=== PATIENT | female | born 1980 | race Caucasian/White ===

== ENCOUNTER 2022-04-15 15:52 | Inpatient (IN) | payer BC ==
[~2022-04-15] VITALS: Ht 167.6 cm; Wt 149.0 kg
[2022-04-15] MEDS ORDERED: HYDROCODON-ACE1 EAC8 PO (19:46)
[2022-04-15] MEDS ORDERED: DICLOFENAC SODI75 MG PO (19:47)
[2022-04-15] MEDS ORDERED: HYDROXYCHLOROQ200 MG PO (19:47)
[2022-04-15] MEDS ORDERED: METHOTREXA25 MG/1 M7 INJ (19:47)
[2022-04-15] MEDS ORDERED: FOLIC ACID1 MG PO (19:47)
[2022-04-15] MEDS ORDERED: TOLTERODINE TART2 MG PO (19:48)
[2022-04-15] MEDS ORDERED: FUROSEMIDE20 MG PO (19:48)
[2022-04-15] MEDS ORDERED: PREDNISONE5 MG PO (19:48)
[2022-04-15] MEDS ORDERED: QUETIAPINE FUM100 MG PO (19:48)
[2022-04-15] MEDS ORDERED: VALACYCLOVIR1000 MG PO (19:49)
[2022-04-15] MEDS ORDERED: FLUCONAZOLE150 MG PO (19:49)
[2022-04-15] MEDS ORDERED: LITHIUM CARBON300 M2 PO (19:49)
[2022-04-15] MEDS ORDERED: CITALOPRAM HBR20 MG PO (19:49)
[2022-04-15] MEDS ORDERED: LAMOTRIGINE200 MG PO (19:49)
--- NOTE | 2022-04-15 23:40 | NUR ---
PATIENT ARRIVED TO THE FLOOR. PATIENT ABLE TO SCOOT FROM STRETCHER TO HOSPITAL BED. PATIENTS ADMISSION COMPLETED. BY LILIA FRYE. VITALS TAKEN AND RECORDED. PATIENTS NG PLACED IN RIGHT NARE. PATIENT DID NOT TOLERATE NG PLACEMENT WELL. PATIENT HAD COPIOUS AMOUNTS OF EMESIS. NG HAS YELLOO DRAINAGE INTO SUCTION CANISTER. PATIENT GIVEN PRN ZOFRAN. PATIENT STATED "I WANT THIS OUT". EDUCATED AND ENCOURAGED PATIENT TO KEEP TUBE IN FOR 1 HOUR. [facility] WILL AWAIT RESULTS. CALL LIGHT IN REACH.
--- NOTE | 2022-04-15 23:58 | NUR ---
PATIENT CALLED AND REQUESTED NG OUT. EDUCATED PATIENT ON IMPORTANCE OF TUBE. PATIENT ASKED BY THIS RN IF SHE WILL LEAVE TUBE IN PLACE UNTIL XRAY IS BACK. PATIENT VERBALIZED SHE WILL WAIT. CALL LIGHT IN REACH.
--- NOTE | 2022-04-16 00:08 | NUR ---
PLACED CALL TO DR CORTES. UPDATED ON PATIENT STATUS AND HER REFUSAL TO KEEP TUBE IN. RECEIVED VERBAL ORDER FOR NAUSEA MEDICATION, REPEAT BACK USING THE REPEAT BACK METHOD.
--- NOTE | 2022-04-16 00:59 | NUR ---
PATIENT USED CALL LIGHT. THIS RN AND LILIA RN PRESENT IN ROOM. PATIENT STATED "I WANT THIS TUBE OUT". PATIENT EDUCATED BY THIS RN AND TELETYPESETTER MONITOR ON THE IMPORTANCE OF KEEPING THE NG IN. PATIENT STATED "I DONT CARE, GET IT OUT". PATIENT OFFERED NAUSE MEDICATION AND ANXIETY MEDICATION. PATIENT REFUSED TO TAKE MEDS. PATIENT ANGAIN ENCOURAGE BY THIS RN TO LEAVE NG IN AND THAT DR CORTES NEEDS HER BOWEL DECOMPRESSED EVEN IF SHE NEEDS SURGERY. PATIENT STATED "I DONT CARE I WANT SURGERY". PATIENT IS VERY ANXIOUS AT THIS TIME. OFFERED A COOL RAG, SOOTHING MUSIC AND WORDS OF ENCOURAGEMENT. PATIENT NOW VISIBLE UPSET AND PULLED OUT NG. ATTEMPTED TO STOP PATIENT. PATIENT NOW HAS NG OUT. PATIENT ASSISTED TO THE RESTROOM AND WAS INCONT OF URINE. PATIENTS BEDDING CHANGED AND CLEAN GOWN PROVIDED. PATIENT IS BACK IN BED RESTING. NO FURTHER NEEDS NOTED. CALL LIGHT IN REACH. IV INFUSING PER ORDER.
--- NOTE | 2022-04-16 02:54 | NUR ---
PATIENT IS RESTING IN BED WITH EYES CLSOED, RR 17. CALL LIGHT IN REACH.
--- NOTE | 2022-04-16 04:33 | NUR ---
PATIENT ASSISTED TO THE BATHROOM A SBA. PATIENT ABLE TO VOID. PATIENT IS BACK IN BED RESTING. PATIENT DENIES ANY NAUSEA. PATIENT ONLY REPORTS HEADACHE, COOL WASH RAG P[ROVIDED FOR FOREHEAD. PATIENTS IV INFUSING PER ORDER. PATIENTS VITALS TAKEN AND RECORDED. INTAKE AND OUTPUT RECORDED. PATIENT IS ON RA. PATIENT DENIES ANY FURTHER NEEDS. CALL LIGHT IN REACH.
--- NOTE | 2022-04-16 08:01 | NUR ---
PT UP TO SHOWER FOR PRE SURGERY - CHLORHEXIDINE PREP - LINEN AND GOWN CHANGED - TORADOL IV GIVEN FOR ARENAS - ASSESSMENT COMPLETE.
--- NOTE | 2022-04-16 10:18 | NUR ---
pt to OR with strait tubing LR on. via bed, clean and with clean linens.
--- NOTE | 2022-04-16 10:19 | CONS ---
[facility] [address], [place] [address] Signed DATE OF CONSULTATION: 04/16/2022 CHIEF COMPLAINT: Periumbilical abdominal pain and swelling with nausea and vomiting. HISTORY OF PRESENT ILLNESS: Jil is a 42-year-old obese female with a history of rheumatoid arthritis, who underwent repair of an umbilical hernia at the age of 27. She is quite confident there is mesh in there. 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 About a year ago, she noticed pain and swelling at that area. She had been to her surgeon in [place], [place]. Of course at 149 kg, he asked her to lose weight before he would repair it. She was coming to our area and had increasing abdominal pain for a couple of days. She was having nausea and vomiting. She finally pulled her truck over and asked EMS to come bring her to our local hospital. She has a nonreducible tender supraumbilical hernia. White count was elevated. Urine specific gravity was high. CT scan of the abdomen and pelvis showed recurrent hernia with loops of small bowel that are obstructed and some mild haziness in the mesentery of the small bowel. I have been asked to admit her as a general surgeon on-call overnight. She was given Rocephin and Flagyl. We did place an NG tube. Unfortunately, she pulled that out. Despite our best efforts, she was too anxious and removed the NG tube. She actually vomited quite a bit and therefore has decompressed herself to some degree. I went over that again with her this morning. PAST MEDICAL HISTORY: 1. Rheumatoid arthritis. 2. Bipolar disorder. 3. Periumbilical ventral hernia, possibly incisional hernia. 4. Osteoarthritis. 5. Small hiatal hernia. 6. Fatty liver. 7. Vaginal herpes. PAST SURGICAL HISTORY: Includes a laparoscopic cholecystectomy, paraumbilical incisional hernia with mesh at age 27, C-sections x2. SOCIAL HISTORY: She smokes a pack of cigarettes a day. She does not drink. She is single now and has two children. 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 Her father is Dmitry Cleaning at and her primary care provider is Dr. Brett Caldwlel in [place], [place]. FAMILY HISTORY: Mom had breast cancer. Electronically Signed By: YAZMIN CORTES MD 04/16/22 1019 PATIENT NAME: JIL CLEANING CONSULTATION DATE OF : 78 REPORT #: [id number] PHYSICIAN: YAZMIN CORTES MD PCP: NO PRIMARY CARE PHYSICIAN REPORT IS CONFIDENTIAL AND NOT TO BE RELEASED WITHOUT AUTHORIZATION [facility] [address], [place] [address] Signed REVIEW OF SYSTEMS: She had 10 systems reviewed and they included the pertinent positives in the above. ALLERGIES: Sulfasalazine. MEDICATIONS: 1. [place] 10 mg. 2. Methotrexate. 3. Diclofenac. 4. Folate. 5. Prednisone 5 mg. 6. Quetiapine. 7. Lamotrigine. 8. [place]. 9. Fluconazole. 10. Valacyclovir. 11. Citalopram. 12. Hydroxychloroquine. 13. Tolterodine. 14. Lasix. PHYSICAL EXAMINATION: VITAL SIGNS: Her blood pressure is 124/72, heart rate is 104, respiratory rate is 19, temperature is 97.8, she is 94% on room air. She is 5 feet 6 inches at 149 kg. GENERAL: Jil is a 42-year-old obese female, lying supine in her hospital bed. She appears tired but not necessarily systemically ill or toxic. Our nurse Kenyatta is with us as well. LUNGS: Clear to auscultation. HEART: Actually is regular rate and rhythm at this point. There is no murmur. ABDOMEN: Quite obese. I can see and feel a palpable lump underneath her skin and just above the umbilicus. It is not reducible. There is no change in color of her skin. LABORATORY DATA: Her white blood count was 18.9, it is now 15.9; hemoglobin is 15, neutrophils are 92 down to 77. Her blood sugar was 146, the creatinine is 0.69. Her COVID is negative. Her total bilirubin and AST are just slightly elevated, probably from the fatty liver. ALT is fine, alkaline phosphatase is 129, albumin is 3.7, lipase 62. The beta HCG is negative. [place] is a little high at 2.0. Urine specific gravity was 1.030. RADIOGRAPHIC STUDIES: Chest x-ray was done and her lungs are clear. The CT scan is reviewed and I can certainly see this periumbilical hernia with a loop of bowel that is obstructed. There is a little bit of haziness in the mesentery. She may or may not have hernia just above Electronically Signed By: YAZMIN CORTES MD 04/16/22 1019 PATIENT NAME: JIL CLEANING CONSULTATION DATE OF : 78 REPORT #: [id number] PHYSICIAN: YAZMIN CORTES MD PCP: NO PRIMARY CARE PHYSICIAN REPORT IS CONFIDENTIAL AND NOT TO BE RELEASED WITHOUT AUTHORIZATION [address] [address] Signed that as well. ASSESSMENT AND PLAN: Jil is a 42-year-old obese female, who has a recurrent periumbilical hernia. It could be an umbilical hernia, but it could be from her laparoscopic cholecystectomy as well. She now has a small bowel obstruction with incarcerated bowel. She has been admitted and started on IV fluids and antibiotics. Unfortunately, she pulled her NG tube out. I explained to Jil she is going to need surgery to reduce that bowel, we will just close that primarily in this acute situation. We had reviewed the idea of losing weight before a definitive hernia surgery. She told me that her insurance company declined gastric sleeve and/or gastric bypass, that is unfortunate for her. We did review the risk including, but not limited to bleeding, infection, scarring, change in contour of the skin, infection of mesh requiring removal, recurrent hernias, chronic pain, and other unforeseen comorbidities. We also reviewed the expected intraop and postop course. She has expressed understanding and would like to proceed. We are going to add her on for later this morning. She has expressed understanding and agrees with the above plan. Yazmin Cortes MD ALB/MODL /[id number] cc: Dr. Brett Cortes MD Copies: YAZMIN CORTES MD ~ Electronically Signed By: YAZMIN CORTES MD 04/16/22 1019 PATIENT NAME: JIL CLEANING CONSULTATION DATE OF : 78 REPORT #: [id number] PHYSICIAN: YAZMIN CORTES MD PCP: NO PRIMARY CARE PHYSICIAN REPORT IS CONFIDENTIAL AND NOT TO BE RELEASED WITHOUT AUTHORIZATION
--- NOTE | 2022-04-16 13:30 | NUR ---
Spoke with pts mom and pt is in PACU. Pt lives with parents, pts daughter and spouse in [place]. 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 Pt does not use any DME and is financially secure.
--- NOTE | 2022-04-16 13:36 | NUR ---
PT TAKEN TO SURGERY, DR LYNCH INFORMED ME OF PT'S SITUATION. WORRIED ABOUT HER DOG. DOG TAKEN BY [facility] ANIMAL CONTROL. OFFICER LARA IN CHARGE OF DOG. CONTACT #[phone]. PT'S MOTHER MAC HERE, INFORMED HER OF PT'S STATUS IN SURGERY. SHE WILL WAIT IN CCU FOR DR CORTES. HAD PRAYER WITH MAC INFORMED ON-CALL VENEER SUPERVISORMARIELA TUCKER TO CONNECT WITH PT AND FAMILY LATER. WILL FOLLOW NEEDED
--- NOTE | 2022-04-16 14:49 | NUR ---
04/16/22 1449 Gogo Alexander 1443 PATIENT ARRIVES TO CCU 130 UNRESPONSIVE TO PAIN. ORAL AIRWAY IN PLACE. CHIN THRUST TO MAINTAIN PATENT AIRWAY. RT AT BEDSIDE FOR ANJANA TX.
--- NOTE | 2022-04-16 15:04 | NUR ---
PT ARRIVED WITH PACU NURSES AND OPHTHALMIC PATHOLOGIST. RESPIRATORY THERAPY IN ROOM PUTTING PT ON BIPAP.
--- NOTE | 2022-04-16 15:13 | NUR ---
REPORT RECIEVED FROM PACU NURSE MARY CARE OF PT ASSUMED AT THIS TIME. PT ON BIPAP AT 45% FIO2. REMAINS DROWSY, NOT RESPONSIVE TO VERBAL STIMULI. RESPONSIVE TOPAIN. SPO2 = 92%. LUNGS SOUND COARSE. HR IN THE 80-90S. MIDLINE INCISION COVERED WITH GAUZE AND TAP, DRESSING CDI. SAEZ PUTTING OUT DOMINIC URINE. IV FLUIDS INFUSING. THIS RN WILL CONTINUE TO CLOSELY MONITOR.
--- NOTE | 2022-04-16 15:46 | NUR ---
PT REMAINS ON BIPAP. SPO2 = 100% ON 45 % FIO2. PT OCCASIONALLY MOANS AND GRIMACES BUT THEN FALLS BACK ASLEEP. MOTHER AT PT BEDSIDE. IV FLUIDS INFUSING. CALL LIGHT WITHIN SADIA. WILL CONTINUE TO MONITOR.
--- NOTE | 2022-04-16 16:15 | NUR ---
Pt awake and alert and oriented. Asking and answering questions appropriately. requesting pain medication. PRN medication given (see emar). Dr Arias in room to check on PT at this time.
--- NOTE | 2022-04-16 16:27 | NUR ---
PT REMAINS AWAKE AND ALERT, REQUESTING TO TAKE OFF BIPAP. PLACED ON 7 L OM AT THIS TIME. SPO2 = 96%. WILL CONTINUE TO CLOSELY MONITOR.
--- NOTE | 2022-04-16 17:25 | NUR ---
PT REMOVED OXYGEN. SPO2 = 95% ON ROOM AIR. LUNGS CONTINUE TO SOUND COARSE WITH EXPIRATORY WHEEZES. PT REQUESTING BREATHING TX. RT NOW IN ROOM WITH PT.
--- NOTE | 2022-04-16 18:05 | NUR ---
PT COMPLAINS OF SEVERE ABDOMINAL PAIN, WORSE WITH COUGHING. PRN MEDICATION GIVEN. MOTHER REMAINS AT BEDSIDE, WILL CONTINUE TO MONITOR.
--- NOTE | 2022-04-16 19:27 | NUR ---
PT CALLED NURSES STATION TO REQUEST ICE CHIPS AT THIS TIME. THIS RN IN TO PROVIDE, PT'S MOTHER AT BEDSIDE. PT HAS NO OTHER REQUESTS AT THIS TIME. INTRODUCTION MADE AT THIS TIME.
--- NOTE | 2022-04-16 20:23 | NUR ---
PT REPORTS PAIN 8/10, TORDOL AND DILAUDID ADMINSITERED TO MANAGE PAIN. PT ALERT AND ORIENTED, SHE REPORTS SHE IS TOO HOT, HOSPITAL SMALL PERSONAL ONE TIME USE FAN PROVIDED AT BEDSIDE, ALSO THERAMASTAT TURNED DOWN, PT'S MOTHER MAC AT BEDSIDE PLANS TO STAY THE NIGHT WILL PROVIDED BEDDING FOR COUCH. POST OP EDUCATION PROVIDED ON WHAT TO EXPECT FOR ACTIVITY AND POSSIBLE INCREASED PAIN WITH INCREASED BOWEL ACTIVITY. PT VERBALIZED UNDERSTANDING, MAC AT BEDSIDE ALSO NODDED UNDERSTANDING. NO FURHTER REQUESTS OR CONCERNS AT THIS TIME.
--- NOTE | 2022-04-16 20:49 | NUR ---
PT WAS RESTING WHEN I ENTERED THE ROOM. MOM HAD ARRIVED AND WAS STAYIN THE NIGHT. PT EXPRESED SHE WAS FEELING BETTER KNOWING HER DOG WAS HEADED HOME.
--- NOTE | 2022-04-16 22:25 | NUR ---
INTO PT ROOM TO ASSIST PT'S MOM MAC WITH MAKING UP GUEST BED/COUCH FOR HER STAY OVER, PT NOTED OT HAVE N.C. JUST OUT OF NOSE, REPLACED AND ADJUSTED PT, IN BED, NO OTHER CONCERNS OR REQUESTS AT THIS TIME.
--- NOTE | 2022-04-16 23:51 | EKG ---
[facility] [address] [facility] [place] [address] Signed Normal sinus rhythm Left axis deviation Abnormal ECG No previous ECGs available Confirmed by ACE LYNCH MD ([id number]) on 04/16/2022 11:51:01 PM Electronically Signed By: ACE LYNCH MD 04/16/22 [facility] PATIENT NAME: JIL CLEANING Electrocardiogram DATE OF : 78 PHYSICIAN: ACE LYNCH MD REPORT #: [id number] REPORT IS CONFIDENTIAL AND NOT TO BE RELEASED WITHOUT AUTHORIZATION
--- NOTE | 2022-04-17 00:28 | NUR ---
PT CALLED NURSES STATION TO REQUEST PAIN MEDICATIONS, FOR ABD PAIN 06/11, 0.5MG IV DILAUDID PRN ADMINISTERED, PT REPORTS ARENAS, SHE ASKED IF THIS COULD BE FROM NOT SMOKING, THIS RN SAID "YES, IT MOST CERTAINLY COULD BE, WOULD YOU LIKE A NICOTINE PATCH FOR NICOTINE REPLACEMENT" PT SAID "YES PLEASE" WILL ORDER NIO WITH .
--- NOTE | 2022-04-17 03:01 | NUR ---
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
--- NOTE | 2022-04-17 04:42 | NUR ---
PT HAD GENTLEMAN CALL NURSES STATION ASKING FOR INFORMATION ABOUT PT CONDITION, MELISSA HILL, THIS RN INTO PT ROOM TO ASK HER PERMISSION TO GIVE INFORMATION, PT NODDED HER HEAD AND VERBALIZED "YES, PLEASE" THIS RN ASKED "HOW IS YOUR PAIN?" SHE SAID "IT REALLY HURTS" 06/11 AT ABD, SAEZ EMPTIED AND MARGARET EMPTIED. PT ADMINSITERED 30MG IV TORDOL PRN AND 0.5MG IV DILAUDID PRN AT THIS TIME, ALSO FRESH ICE CHIPS AND TWO NEW ICE PACKS. PT REPORTS HER HEADACHE IS BETTER BUT SHE HAS NOT BEEN ABLE TO SLEEP. PT HAS NO OTHER CONCERNS OR REQUESTS AT THIS TIME.
--- NOTE | 2022-04-17 05:30 | NUR ---
PT CALLED NURSES ASKED THIS RN WHEN SHE WOULD HAVE HER NORMAL HOME MEDS STARTED, DISCUSSED WITH PT THAT GENERALLY POST OP DAY ONE HOME MEDS ARE GENERALLY RESTARTED. PT ALSO REPORTS SHE FEELS SHE IS HAVING TROUBLE CLEARING SECRETIONS, SHE SAID SHE DOESNT WANT TO COUGH HARD DUE TO IT HURTING, OFFERED PT A PRN NEB TREATMENT, SHE SAID "YES, THAT SHOULD HELP" CALLED Khadijah RANGEL TO ADMINISTER.
--- NOTE | 2022-04-17 05:57 | OR ---
[facility] [address] [place], [place] [address] Signed DATE OF OPERATION: 04/16/2022 SURGEON: Yazmin Cortes MD PREOPERATIVE DIAGNOSIS: Incarcerated recurrent symptomatic supraumbilical ventral incisional hernias x2 with small bowel obstruction. POSTOPERATIVE DIAGNOSES: 1. Incarcerated recurrent symptomatic supraumbilical ventral incisional hernias x2 with small bowel obstruction. (6 x 9 cm). 2. Recurrent umbilical hernia, (1 cm). PROCEDURE: 1. Laparotomy with moderate lysis of adhesions. 2. Explantation Ventralex mesh x2. 3. Primary incisional herniorrhaphy with intraabdominal Ventrio mesh (19.6 cm x 24.6 cm). 4. Subcutaneous drain placement. ESTIMATED BLOOD LOSS: 200 mL. INDICATIONS: Brigitte is a 42-year-old female with a body mass index of 53. She is from the [place], [place] area. 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 She has had a laparoscopic cholecystectomy in the past. She talked about having an umbilical hernia repair when she was 27 years old. She remembers mesh had been used. She has also had a couple of C-sections in the past. That seemed to go well. She has developed a recurrent hernia above the umbilicus. One can easily see the bulging of the skin. She had been to a surgeon in [place], [place] who recommended she lose a significant amount of weight before she can have the hernias repaired electively. This was about a year ago. In the meantime, she was coming to our area and was having increased pain and swelling in the in the hernia above the umbilicus. She is having nausea and vomiting. She had to stop her truck on the highway and call 911. They brought her to our local emergency room. In the emergency room, she had an incarcerated tender supraumbilical recurrent incisional hernia. White count was elevated. Urine specific gravity was up at 1.030. Her beta HCG was negative. A CT scan of the abdomen pelvis was performed and she has 2 hernias above the umbilicus. One contained the transverse colon and the one just below it contained small intestine with some haziness in that small bowel mesentery and a kink of the small bowel representing the transition point. I have been asked to admit her as Electronically Signed By: YAZMIN CORTES MD 04/17/22 0557 PATIENT NAME: JIL CLEANING OPERATIVE REPORT DATE OF : 78 REPORT #: [id number] PHYSICIAN: YAZMIN CORTES MD PCP: NO PRIMARY CARE PHYSICIAN REPORT IS CONFIDENTIAL AND NOT TO BE RELEASED WITHOUT AUTHORIZATION [facility] [address] [place], [place] [address] Signed a general surgeon on-call. We placed an NG tube and she simply would not tolerate that, she pulled it out. This was despite our best efforts. I met with her this morning, and I reviewed her findings including the CT scan. I explained her she was going to require surgery to reduce that bowel. She understands the expected intraop and postop course. We had reviewed the risks including, but not limited to bleeding, infection, scarring, change in contour of skin, damage to bowel, infection of mesh requiring removal, recurrent hernias, and chronic pain. She had expressed understanding and wished to proceed. PROCEDURE NOTE: Brigitte was taken in the operating room and placed in a supine position under general endotracheal tube anesthesia. She was already on preoperative antibiotics along with subcutaneous Lovenox. SCDs were utilized. A Moore catheter was inserted with return of clear yellow urine without difficulty. She was then prepped and draped in the usual sterile fashion. We used a standard vertical supraumbilical midline incision. We went down around the 2 hernias bluntly and with cautery. There was a small bridge of fascia between it maybe a centimeter. We were hoping to preserve that, but in the end, we had it divided. The inferior hernia site was from her laparoscopic surgery, and I think that the one just above it also was probably from introduction of a fan retractor for an additional port during her gallbladder surgery. She had 2 small piece of Ventralex mesh to repair both of these sites. She had a 3rd piece of round Ventralex mesh for her umbilical hernia repair as well. We spent some time lysing adhesions mainly from the omentum to these pieces of mesh. The 2 pieces of mesh were removed completely, but the 3rd one at the umbilicus in the umbilicus was well incorporated. We simply left that attached to the abdominal wall. Although she did recur the umbilical hernia just at the side of it, so from the inside, I closed that with an interrupted #1 [id number] Prolene suture. We took a few minutes then to close all the holes in her omentum with help of running 0 Vicryl sutures. At that point, we could easily see throughout the abdomen. We had to follow the omentum just below the umbilicus to have it completely freed. We could easily see her stomach, transverse colon, and underneath the small bowel, though a little dilated was not particularly concerning. We then returned the omentum back to its position. There was no way to bring her abdominal wall back together in the midline, there was simply far too much lateral tension. When we connected the 2 hernias, the single hernia defect measured top to bottom 6 cm but [id number]. It measured 9 cm in an oval shape. We therefore chose our 19.6 cm x 24.6 cm oval shaped Ventrio mesh. We placed that in the abdomen between the omentum and the abdominal wall in a transverse position. We used the absorbable tacker then to circumferentially attach the mesh to the abdominal wall. We closed the fascial defect with multiple interrupted [id number] number #1 Prolene sutures. We injected local anesthetic into the abdominal wall. The wound was irrigated and suctioned out until clear. She had a bit of subcutaneous space more so on the right than on the left. We used a #10 flat Dago drain, and we laid it transversely across this area on top of the Electronically Signed By: YAZMIN CORTES MD 04/17/22 0557 PATIENT NAME: JIL CLEANING OPERATIVE REPORT DATE OF : 78 REPORT #: [id number] PHYSICIAN: YAZMIN CORTES MD PCP: NO PRIMARY CARE PHYSICIAN REPORT IS CONFIDENTIAL AND NOT TO BE RELEASED WITHOUT AUTHORIZATION [facility] [address] [place], [place] [address] Signed abdominal wall and out the right side of her abdomen. The drain was held in place at the level of skin with interrupted 2-0 nylon suture. We brought the subcutaneous tissues back together in layers with interrupted 2-0 PDS suture. We then irrigated the wound once again. The dermis was reapproximated with interrupted 3-0 subcuticular Monocryl sutures. The skin was then reapproximated with romie. Dry gauze and tape were then applied. We left the Moore catheter in place. She was awakened from her anesthesia, extubated in the OR, and taken to recovery room in stable condition. MD RIGOBERTO Henriquez/MODL /[id number] cc: MD Brett Henriquez MD Copies: YAZMIN CORTES MD ~ Electronically Signed By: YAZMIN CORTES MD 04/17/22 0557 PATIENT NAME: JIL CLEANING OPERATIVE REPORT DATE OF : 78 REPORT #: [id number] PHYSICIAN: YAZMIN CORTES MD PCP: NO PRIMARY CARE PHYSICIAN REPORT IS CONFIDENTIAL AND NOT TO BE RELEASED WITHOUT AUTHORIZATION
--- NOTE | 2022-04-17 07:22 | NUR ---
Report recieved, care of PT assumed at this time.
--- NOTE | 2022-04-17 07:48 | NUR ---
PATIENT AWAKE IN BED, VITALS AND I&OS CHARTED NADJA CHRISTIANSON, RN IN ROOM. CALL LIGHT IN EASY REACH
--- NOTE | 2022-04-17 07:51 | NUR ---
In room for assessment and medication administration. PT awake in bed, mother at bedside. PT reports pain at abdominal incision site. Given Oral pain medication at this time (see emar). upon inspection, incision well approximated, no redness, warmth or other signs of infection. MARGARET incision site also appears WNL. Bowel tones sluggish in left lower quadrant but active in all other quadrants. Expritory wheeze noted up upper airways upon auscultation, diminished in bilateral lung bases. Plan of care for day established with PT. All questions answered. Call light within reach. Will continue to monitor.
--- NOTE | 2022-04-17 09:09 | NUR ---
PT GIVEN PRN PAIN MEDICATION FOR 8/10 ABDOMINAL PAIN AND SCHEDULED HOME MEDICATIONS. CALL LIGHT WITHIN REACH. PLAN ESTABLISHED TO GET PT UP TO SIDE OF BED IN THE NEXT 15 MINUTES
[2022-04-17] MEDS ORDERED: VISION FORMULA1 EAC1 PO (09:29)
--- NOTE | 2022-04-17 09:37 | NUR ---
Moore care completed. PT up to chair with two person stand by assist. Well tolerated by PT. Steady on feet. SENIOR MICROSTRATEGY DEVELOPER remains at pt bedside at this time.
--- NOTE | 2022-04-17 09:45 | NUR ---
PATIENT UP TO CHAIR WITH 2PA. MOTHER IN ROOM. LINENS AND GOWN CHANGED. ICE WATER PROVIDED, CALL LIGHT IN EASY REACH
[2022-04-17] MEDS ORDERED: GUANFACINE HCL1 MG PO (10:34)
--- NOTE | 2022-04-17 10:34 | NUR ---
MED REC COMPLETE
--- NOTE | 2022-04-17 11:24 | NUR ---
PT COMPLAINS OF ABDOMINAL PAIN AND DISCOMFORT WITH POSITIONING. ASSISTED WITH REPOSITIONING IN CHAIR AND PRN PAIN MEDICATION GIVEN PER PT REQUEST (SEE EMAR). MOTHER AT BEDSIDE, CALL LIGHT WITHIN REACH. WILL CONTINUE TO MONITOR.
--- NOTE | 2022-04-17 12:25 | NUR ---
ASSESSMENT COMPLETED. PT COMPLAINS PAIN HAS NOT IMPROVED. GIVEN PRN TORRIDOL AT THIS TIME ( SEE EMAR). ASSET MANAGER D'C PT'S SAEZ. PT REQUESTING PM SEROQUEL AT THIS TIME. PT STATES "I HAVENT SLEPT IN DAYS" DISCUSSED RISKS FOR ICU DELIRIUM AND ENCOURAGED ACTIVITY DURING THE DAY TO HELP WITH SLEEP. PT REMAINS IN THE CHAIR CALL LIGHT WITHIN REACH. WILL CONTINUE TO MONITOR.
--- NOTE | 2022-04-17 12:29 | NUR ---
Vitals charted. Moore removed. Patient sitting up in chair, mother in room
--- NOTE | 2022-04-17 12:50 | NUR ---
ARRANGED TO HAVE FR SLOAN VISIT PER PT REQUEST. WILL FOLLOW
--- NOTE | 2022-04-17 12:57 | NUR ---
PT AMBULATED TO BATHROOM AND BACK TO BED. STAND BY ASSIST ONLY REQUIRED. PT STEADY ON FEET WITH AMBULATION.
--- NOTE | 2022-04-17 15:32 | NUR ---
PT AMBULATED TO AND FROM BATHROOM. MODERATE PAIN WITH POSITION CHANGES. BACK IN BED. CALL LIGHT WITHIN REACH. WILL CONTINUE TO MONITOR.
--- NOTE | 2022-04-17 16:30 | NUR ---
ASSESSMENT COMPLETED. PT COMPLAINS OF HEADACHE. PRN TYLENOL GIVEN. BOWEL TONES ACTIVE IN ALL FOUR QUADRANTS. MINIMAL AMOUNT OF DRAINAGE FROM MARGARET. EXPIRATORY WHEEZE AND COARSENESS NOTED UPON LUNG AUSCULTATION. ENCOURAGED PT TO AMBULATE. PT REFUSED AT THIS TIME. MOTHER AT BEDSIDE. CALL LIGHT WITHIN REACH. WILL CONTINUE TO MONITOR.
--- NOTE | 2022-04-17 16:38 | NUR ---
Spoke with Andreia. UPdated, I spoke with mom yesterday. Pt confirms info from mom and also adds she is on a pain program through Dr. Jacquie Drake from [facility]. States she is on a pain contract and should only use [facility] per her contract. Info passed on to Dr. Arias. Pt plans on dc to home with her family when medically stable.
--- NOTE | 2022-04-17 18:46 | NUR ---
PT TRANSFERED FROM CCU TO THE FLOOR VIA BED. VITAL SIGNS STABLE. PT ORIENTED TO ROOM AND CALL LIGHT. PT STATES PAIN IMPROVED. ICE PACKS PROVIDED FOR MIDLINE INCISION. ABD BINDER IN PLACE, MARGARET DRAIN WITH SMALL AMOUNT OF SEROSANG FLUID. PT DENIES FURTHER NEEDS AT THIS TIME. CALL LIGHT WITHIN REACH. MOTHER AT BEDSIDE.
--- NOTE | 2022-04-18 05:30 | NUR ---
PT WAS CLEANED , BARIER CREAM REAPPLIED TO AFFECTED AREAS. CHUX AND ATTENDS CHANGED. TURNED TO HER BACK WITH PILLOWS UNDER HER FEET.
--- NOTE | 2022-04-18 07:12 | NUR ---
REPORT RECEIVED FROM NIGHT RN - PT ASLEEP IN BED WITH RR EVEN AND UNLABORED, HEAD OF BED ELEVATED. CALL LIGHT IN REACH.
--- NOTE | 2022-04-18 08:32 | NUR ---
PT ASSISTED TO CHAIR. REPORTING 8/10 PAIN. PO PAIN MEDS AND TORIDOL ADMINISTERED. PT FINISHED 200ML FLUID AND TOLERATED WELL. WATER REFRESHED. DENIES FURTHER NEEDS.
--- NOTE | 2022-04-18 09:02 | NUR ---
RN IN ROOM TO ADMINISTER SCHEDULED MEDICATIONS AND ASSESS PT. PT SITTING UP IN CHAIR UPON ENTERING. PT STATES PAIN IS WORSE THIS MORNING. PRN MEDICATIONS PROVIDED FOR THIS. IS PROVIDED AND EDUCATION COMPLETED - PT MINIMALLY COOPERATIVE IN THIS. PT DENIES NAUSEA, AGREES TO POC TODAY TO AMBULATE ONCE PAIN LEVEL IS LOWER WITH PRN PAIN MEDS PROVIDED. ABD BINDER REMOVED TO INSPECT INCISION - C/D/I, WELL APPROXIMATED. MARGARET DRAIN IN PLACE AND DRAINING. ADDITIONAL BLANKET PROVIDED - PT DENIES FURTHER NEEDS.
--- NOTE | 2022-04-18 09:59 | NUR ---
PER AM MEETING NO CHANGE IN DISCHARGE PLAN AT THIS TIME.
--- NOTE | 2022-04-18 11:15 | NUR ---
PT RESTING IN CHAIR-ALERT BUT DOZING ON AND OFF. PT PLEASANT, MOTHER MAC IN RM. MOTHER REQUESTED UPDATE ON TODAY'S POC. INFORMED RN AINSLEY, SHE WILL UPDATE. GAVE ENCOURAGEMENT PT WOULD LIKE FR [place] TO VISIT.WILL INFORM HIM. GAVE BLESSING, WILL FOLLOW
--- NOTE | 2022-04-18 11:16 | NUR ---
PT UP IN HALLWAY AMBULATING - TOLERATED WITH MODERATE PAIN. BINDER READJUSTED. NO GAS WAS PASSED. MOM AT BEDSIDE - CALL LIGHT IN REACH.
--- NOTE | 2022-04-18 12:00 | NUR ---
RN IN ROOM TO ROUND ON PT. PT REQUESTS ICE FOR LUNCH 200ML FLUID ALLOWANCE. PT L WRIST IV DC'D R/T PAIN AT SITE. PT DENIES FURTHER NEEDS. MOM AT BEDSIDE.
--- NOTE | 2022-04-18 13:19 | NUR ---
PT UP AMBULATING IN HALLWAY WITH RN. ABLE TO TOLERATE WITH MODERATE PAIN. ENCOURAGED IS USE. PT BACK TO CHAIR AFTER USING THE RESTROOM. MOM AT BEDSIDE.
--- NOTE | 2022-04-18 14:25 | NUR ---
pt up ambulating in hallway
--- NOTE | 2022-04-18 14:47 | NUR ---
PT BACK TO ROOM AFTER AMBULATING IN HALLWAY - PT DRIPPING SEROSANG FLUID FROM MARGARET SITE, MARGARET EMPTIED AND ASSESSED - WNL. REINFORCED WITH GAUZE. PT RATES PAIN /10 - REQUESTS PRN ANTHONY FOR THIS. PT BACK TO BED WITH SCDS ON. CALL LIGHT IN REACH, MOM AT BEDSIDE.
--- NOTE | 2022-04-18 16:41 | NUR ---
RN IN ROOM TO ROUND ON PT - PT RESTING IN BED UPON ENTRY. PT RATES HER PAIN WORSE THAN WHEN NORCO WAS ADMINISTERED - IV TORADOL ADMINISTERED. ENCOURAGED PT TO USE IS. PT EDUCATION PROVIDED ON POST OP HEALING AND EXPECTATIONS. ICE APPLIED TO INCISION. ICE TEA PROVIDED FREE WATER AMOUNT IN HOPES TO HELP PTS CAFFIENE HEADACHE.
--- NOTE | 2022-04-18 19:52 | NUR ---
PT. CALLED NURSES STATION REQUESTING NEW ICE PACK AND MARGARET DRAINED. NURSE NOTIFIED OF MARGARET DRAIN PROMPTLY. FRESH ICE PACK PROVIDED. ROOM TIDIED. CALL LIGHT LEFT WITHIN REACH. NO OTHER IMMEDIATE NEEDS AT THIS TIME.
--- NOTE | 2022-04-18 20:06 | NUR ---
REPORT RECEIVED ON PT. SHE HAD A GOOD DAY. PASSING GAS. PAIN CONTROLLED. SHE IS NOW UP AMBULATING IN THE HALLS FOR HER 4TH TIME TODAY.
--- NOTE | 2022-04-18 20:20 | NUR ---
ASSISTED PT. WITH SHORT WALK. ASSISTED PT. BACK TO ROOM. ROOM TIDIED. BED TIDIED. VITALS AND I/Os DOCUMTED. CALL LIGHT LEFT WITHIN REACH. NO OTHER IMMEDIATE NEEDS AT THIS TIME.
--- NOTE | 2022-04-18 21:32 | NUR ---
ASSISTED PT. WITH SCD APPLICATION. ASSISTED PT. MOTHER WITH BEDDING. ROOM TIDIED. TRASH EMPTIED. CALL LIGHT LEFT WITHIN REACH. NO OTHER IMMEDIATE NEEDS AT THIS TIME.
--- NOTE | 2022-04-18 23:15 | NUR ---
PT APPEARS TO BE SLEEPING QUIETLY. ILYA LIGHT IN REACH. PTS MOTHER IS ROOMING IN.
--- NOTE | 2022-04-19 03:55 | NUR ---
PT CHECK. SHE IS SLEEPING WELL. OPENED HER EYES DURING CHECK. BACK TO SLEEP. NO NEEDS. CALL LIGHT IN REACH.
--- NOTE | 2022-04-19 06:29 | NUR ---
PT AMBULATED IN THE [place] AT THE BEGINNING OF THIS SHIFT. SHE UNDERSTANDS THE PURPOSE FOR AMBULATING.SHE TOLERATED THIS WELL. PT HAS BEEN ON A FLUID RESTRICTION AND DOES NOT LIKE THIS. SHE HAS COMPLAINED OF PAIN IN ABD AND RIGHT SHOULDER. SHE HAS BEEN MEDICATED WITH NORCO 2 TABS TWICE. ICE PACKS HAVE BEEN APPPLIED TO HER RIGHT SHOULDER AND ABD. VSS. AFEBRILE.
--- NOTE | 2022-04-19 07:25 | NUR ---
REPORT RECEIVED FROM NIGHT RN - PT RESTING IN BED AND WAKES WITH DOOR OPENING. DENIES NEEDS AT THIS TIME. CALL LIGHT IN REACH, MOM AT BEDSIDE.
--- NOTE | 2022-04-19 08:38 | NUR ---
ASSISTED PT TO BATHRROM THEN FOR INDEPENDENT WALK IN [place]. PT NOW SITTING IN CHAIR WITH FULL LIQUID TRAY. FLUIDS TITRATED TO 50ML/HR. LESLY INIGUEZ. DENIES NEEDS. CALL LIGHT IN REACH.
--- NOTE | 2022-04-19 09:00 | NUR ---
RN IN ROOM TO ASSESS PT AND ADMINISTER SCHEDULED MEDICATIONS. PT UP IN CHAIR EATING BREAKFAST TRAY UPON ENTRY. PT REPORTS PAIN 5/10 - EDUCATION PROVIDED ON PAIN MANAGMENT. ICE APPLIED TO SHOULDERS FOR RA PAIN. IV SITE TOLERATING INFUSION WITHOUT DIFFICULTY. INCISION C/D/I, MARGARET DRAIN INTACT. MOM AT BEDSIDE - CALL LIGHT IN REACH.
--- NOTE | 2022-04-19 10:00 | NUR ---
RN ROUNDING ON PT - PT REQUESTS TO SHOWER. IV SALINE LOCKED FOR SHOWER. REFRIGERATION ENGINE OPERATOR TO ASSIST.
--- NOTE | 2022-04-19 10:26 | NUR ---
PT GOT SHOWER. PT BACK IN BED WITH HIPS FLOATED TO KEEP PRESSURE OFF BOTTOM. CALL LIGHT WITHIN REACH NO FURTHER TASKS AT THIS TIME
--- NOTE | 2022-04-19 10:41 | NUR ---
RN IN ROOM TO ADMINISTER NEW SCHEDULED MEDICATION. PT BACK TO BED FROM SHOWER. IV FLUIDS RESTARTED, IV SITE TOLERATING THIS WELL. PT REQUESTS ICE PACKS FOR SHOULDER. CALL LIGHT IN REACH.
--- NOTE | 2022-04-19 12:23 | NUR ---
RN IN ROOM TO ROUND ON PT - PT SITTING IN BED WITH HOB ELEVATED WATCHING TV UPON ENTRY. PT RATES PAIN 5/10, PRN ANTHONY PROVIDED FOR THIS. PT HAS LUNCH TRAY AND DENIES NAUSEA. CALL LIGHT IN REACH.
--- NOTE | 2022-04-19 12:45 | NUR ---
PT REPORTED TO HAVE LARGE LIQUID BM BY INDOOR LANDSCAPER/GARDENER - PT TOLERATED THIS WITHOUT DIFFICULTY. NEW GOWN AND BED LINENS PROVIDED.
--- NOTE | 2022-04-19 14:41 | NUR ---
PT UP TO AMBULATE IN HALLWAY - PASSING GAS AND HAD BM. MARGARET DRAIN INTACT AND DRAINING LESS QUANITY. INCISION IS WELL APPROXIMATED WITH NO REDNESS OR WARMTH. PT TOLERATED SOME FULL LIQUID LUNCH WITHOUT NAUSEA.
--- NOTE | 2022-04-19 16:36 | NUR ---
PT PROVIDED CLEAN ABD BINDER - RESTING IN CHAIR, DENIES NEEDS AT THIS TIME.
--- NOTE | 2022-04-19 18:14 | NUR ---
RN IN ROOM TO ADMINSTER REQUESTED PRN PAIN MEDICATIONS. PT RATES PAIN 7/[address] PT USING IS. HAS BEEN AMBULATING IN THE HALLWAY THIS EVENING. ATE 100% OF DINNER WITHOUT DIFFICULTY. CALL LIGHT IN REACH.
--- NOTE | 2022-04-19 19:32 | NUR ---
SHIFT REPORT FROM MICHELET Epperson RN, PT UP TO AMBULATE HALLS AT THIS TIME TO HELP WITH GAS PAIN. PER REPORT PT ON POINT WITH CARE PLAN, PLAN TO DISCHARGE IN AM.
--- NOTE | 2022-04-19 20:31 | NUR ---
PT RESTING IN BED, REPORTS PAIN 6/10 PT REPORTS "FEELS LIKE GAS PAIN" MOTRIN ADMINSITERED AT THIS TIME WITH HS MEDS
--- NOTE | 2022-04-19 21:30 | NUR ---
PT AMBULATING IN HALLS AT THIS TIME. SHE REPORTS SHE IS HAVING ITCHING AND WOULD LIKE TO HAVE THIS RN LOOK AT HER SKIN AFTER HER WALK.
--- NOTE | 2022-04-19 22:11 | NUR ---
PT BACK TO HER ROOM SITTING UP IN RECLINER, THIS RN ASSESS SKIN, PT HAS BEEN ITCHING AROUND NEETU FROM MIDLINE, DISCUSSED WITH PT THAT HER INCISION IS HEALING AND WILL ITCH ALSO HER SKIN IS DRY, BARRIER CARE APPLIED ALSO TO HER BACK SHE REPORTS THAT IS ALSO ITCHY. DISCUSSED IMPORTANCE TO NOT ITCH AT INCISION OR SKIN IN GENERAL. PT REPORTS SHE IS GOING TO GO TO BED SOON. PT IS ALERT AND ORIENTED.
--- NOTE | 2022-04-19 22:24 | NUR ---
PT STANDBY ASSIST TO BED, NEW BATTERIES PLACED IN PERSONAL FAN, PT FAST TO SLEEP SNORING NOTED. NO FURTHER REQUESTS OR CONCERNS
--- NOTE | 2022-04-20 00:18 | NUR ---
PT RESTING QUIETLY IN BED NO DISTRESS NOTED, RR 17 BPM. EYES CLOSED.
--- NOTE | 2022-04-20 03:34 | NUR ---
PT UP TO BATHROOM TO VOID, STANDBY ASSIST, REPORTS PAIN 6/10 AT ABD. NORCO PRN ADMINISTERED AT THIS TIME. PT REPORTS HER RIGHT SHOULDER IS ALSO SORE AND STIFF, SHE REPORTS DUE TO HX OF RA. NO OTHER CONCERNS AT THIS TIME
--- NOTE | 2022-04-20 04:07 | NUR ---
PT HAS SLEPT WELL OVER SHIFT, REPORTS PAIN 6/10, HAS BEEN ADMINSITERED MOTRIN ONCE AND NORCO PRN ONCE OVER SHIFT, WELL ICE PACKS, SHE IS INDEPENDENT IN HER ROOM TO AMBULATE, HAS URGENCY TO VOID. REPORTS NEETU ARE ITCHY, AND HER BACK DUE TO ABD BINDER, BARRIER CREAM RUBBED ON BACK AND ABD, NOT NEAR INCISION. SHE REPORTS THIS HAS HELPED, SHE VERBALIZED THAT HER PARENTS WILL BE HERE TO PICK HER UP AROUND 1000 AM TO PICK HER UP WHEN DISCHARGE, IS THE PLAN PER REPORT. NO OTHER CONCERNS OR REQUESTS, SHE HAS HAD TWO SUGAR FREE VANILLA PUDDINGS THIS SHIFT WITH PAIN MEDICATIONS. 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 PT REPORT RIGHT SHOULDER STIFF FROM RA THIS AM.
--- NOTE | 2022-04-20 06:11 | NUR ---
PT RESTING QUIETLY IN BED EYES CLOSED RR 16 BPM, NO DISTRESS NOTED. I/O, AND V/S COMPLETE.
--- NOTE | 2022-04-20 07:30 | NUR ---
REPORT RECEIVED FROM NIGHT RN - PT AWAKE IN BED AWAITING ROUNDING FROM SURGEON. DENIES NEEDS AT THIS TIME.
--- NOTE | 2022-04-20 08:15 | NUR ---
RN IN ROOM TO ADMINISTER SCHEDULED MEDICATIONS AND ASSESS PT - PT AWAKE IN BED UPON ENTRY. PT AMBULATES TO BATHROOM WITHOUT DIFFICULTY. PT STATES UNDERSTANDING OF DISCHARGE PLAN AND INSTRUCTIONS. REQUESTS THAT THE MARGARET DRAIN EDUCATION BE REINFORCED WHEN HER MOTHER ARRIVES. IV DC'D, CANNULA INTACT. PRN IBUPROPHEN ADMINISTERED FOR 4/10 PAIN IN ANTICIPATION OF INCREASED MOVEMENT WITH DC.
[2022-04-20] MEDS ORDERED: HYDROCODON-ACE1 EAC8 PO (08:37)
[2022-04-20] MEDS ORDERED: ADVIL200 MG PO (08:43)
--- NOTE | 2022-04-20 10:03 | NUR ---
PT USES CALL LIGHT TO REQUEST HELP SHOWERING BEFORE GETTING DRESSED FOR HOME. PT RATES PAIN 5/10, PRN ANTHONY PROVIDED FOR THIS. PT STATES SHE HAD BM AFTER BREAKFAST AND C/O "GASSY" PAINS, ENCOURAGED PASSING GAS AND CONTINUED MOVEMENT. PT DENIES FURTHER NEEDS, CALL LIGHT IN REACH.
--- NOTE | 2022-04-21 07:21 | DS ---
[facility] [address], [place] [address] Signed ADMISSION DATE: 04/16/2022 DISCHARGE DATE: 04/20/2022 FINAL DIAGNOSIS: Incarcerated recurrent supraumbilical ventral incisional hernias x2 with small bowel obstruction. PROCEDURES: 1. Laparotomy with moderate lysis of adhesions. 2. Explantation of mesh x2. 3. Primary incisional herniorrhaphy with Ventrio mesh (19.6 x 24.6 cm). 4. Placement of subcutaneous drain. 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 She lives in the [place], [place] area. She has undergone previous laparoscopic cholecystectomy. She has had repair of umbilical hernia with Ventralex mesh but also the supraumbilical trocar site and the midepigastric trocar site also had the small 4.3 cm round Ventralex mesh in place as well. Therefore, she had three separate pieces of mesh. She is known to have recurrent hernia. She was coming to our area on her way back to [place]. 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 She was brought down to our local hospital emergency room. I had been asked to admit her as a general surgeon on-call. HOSPITAL COURSE: I had met with Jil that day and we took her to the operating room. We performed a laparotomy with moderate lysis of adhesions, mainly from the omentum to the mesh. Also some of the omentum down below the umbilicus. The holes in the omentum had been primarily repaired. We removed the mesh from the supraumbilical trocar site and the midepigastric trocar sites. The mesh at the umbilicus remains in place. However, she did have a small recurrent hernia on the side of that as well. We simply closed that from underneath with an interrupted #1 Prolene suture. She also had a hernia in the trocar site just below the xiphoid process. We closed that fascial defect with an interrupted [id number] #1 Prolene suture as well. The two trocar sites in the middle of her abdomen created a fascial defect around 6 x 9 cm lying transversely. We therefore chose our 19.6 x 24.6 cm oval shaped Ventrio mesh and we placed it transversely across the upper abdomen that covered those two trocar sites as well as the umbilicus. It was held in place with the absorbable tacker and then we closed the fascial defect over the hernia with interrupted [id number] #1 Prolene sutures. Multiple passes of the suture went through of the mesh to also help hold it in place. She has a very thick omentum and it is protecting that mesh from her Electronically Signed By: YAZMIN CORTES MD 04/21/22 0721 PATIENT NAME: JIL CLEANING DISCHARGE SUMMARY DATE OF : 78 REPORT #: [id number] PHYSICIAN: YAZMIN CORTES MD PCP: NO PRIMARY CARE PHYSICIAN REPORT IS CONFIDENTIAL AND NOT TO BE RELEASED WITHOUT AUTHORIZATION [facility] [address] [place] [id number] Signed underlying bowel. Consequently, her bowel was generally not particularly inflamed or indurated. Therefore, she recovered very nicely from her surgery. She is now tolerating a regular diet and having lots of flatus and several bowel movements. The abdomen is obese but soft and nontender. Incision is healing well with her romie in place. She had a fair amount of space underneath the skin from the hernia, so we left simple Dago drain in place and brought it out through the right side of her abdominal wall. She has thin serosanguineous fluid in that drain. That will be removed once this drainage falls below 30 mL per day. At this point, she is doing well and she wants to go home with her family today. DISCHARGE PLANS AND MEDICATIONS: Jil will be discharged to home with a prescription for [place] 10/325 1-2 tablets p.o. q.6 hours p.r.n. for severe postoperative pain. We will dispense 40 tablets with no refills. She can use Tylenol, ibuprofen, or Aleve purchased [id number] for [id number] pain. She can leave her incision open to air. Her primary care provider can remove the romie in 7 to 10 days after the date of surgery. Once the drain output falls below 30 mL per day, the drain can be removed by simply cutting the stitch and pulling out the drain. In the meantime, she can perform her activities of daily living including walking up and down stairs and showering, bathing as usual. I have asked her not to lift over 20 pounds the 1st month. She should not lift over 50 pounds 2nd month. After that, no restrictions. However, her abdominal wall is quite thin from her obesity and I suspect she is going to have trouble throughout her life. She would do well if she loses significant amount of weight and actually undergo abdominoplasty at some point in the future. That would require removal of that mesh. That mesh fortunately is fairly easy to remove. She should return to work in about eight weeks or so after the surgery. She will follow her regular diet and her usual medications in the meantime as she has done here in the hospital. We will send her home with all her records. Of course, she is welcome to call my office any time if she has any concerns or questions. In the meantime, she will follow up with her primary care provider in about 5 to 10 days from discharge. She has expressed understanding and agrees with the above plan. MD RIGOBERTO Henriquez/KERRYL /[id number] Electronically Signed By: YAZMIN CORTES MD 04/21/22720 PATIENT NAME: JIL CLEANING DISCHARGE SUMMARY DATE OF : 78 REPORT #: [id number] PHYSICIAN: YAZMIN CORTES MD PCP: NO PRIMARY CARE PHYSICIAN REPORT IS CONFIDENTIAL AND NOT TO BE RELEASED WITHOUT AUTHORIZATION [facility] [address] [place] [phone] Signed cc: MD Brett Henriquez MD Copies: YAZMIN CORTES MD ~ Electronically Signed By: YAZMIN CORTES MD 04/21/2221 PATIENT NAME: JIL CLEANING DISCHARGE SUMMARY DATE OF : 78 REPORT #: [id number] PHYSICIAN: YAZMIN CORTES MD PCP: NO PRIMARY CARE PHYSICIAN REPORT IS CONFIDENTIAL AND NOT TO BE RELEASED WITHOUT AUTHORIZATION
== END 2022-04-20 11:29 | disposition home or self-care (01) | DRG 336 ==
LOC: ED 15:52 → MS 15:56 → CCU 04-16 07:09 → MS 04-16 07:10 → CCU 04-16 14:45 → MS 04-17 18:40
PROVIDERS: ADMIT Colon & Rectal Surgery; ATTEND Colon & Rectal Surgery
PROC: 0WUF0JZ Supplement Abdominal Wall with Synthetic Substitute, Open Approach (ICD-10-PCS; 2022-04-16)
PROC: 0W9F00Z Drainage of Abdominal Wall with Drainage Device, Open Approach (ICD-10-PCS; 2022-04-16)
PROC: 0DNU0ZZ Release Omentum, Open Approach (ICD-10-PCS; principal; 2022-04-16 10:30)
DX: K43.6 Other and unspecified ventral hernia with obstruction, without gangrene (principal); Z68.43 Body mass index [BMI] 50.0-59.9, adult; D84.9 Immunodeficiency, unspecified; K43.0 Incisional hernia with obstruction, without gangrene; K42.0 Umbilical hernia with obstruction, without gangrene; F31.9 Bipolar disorder, unspecified; G47.30 Sleep apnea, unspecified; M06.811 Other specified rheumatoid arthritis, right shoulder; M25.511 Pain in right shoulder; N32.81 Overactive bladder; I34.0 Nonrheumatic mitral (valve) insufficiency; F17.210 Nicotine dependence, cigarettes, uncomplicated; K76.0 Fatty (change of) liver, not elsewhere classified; A60.09 Herpesviral infection of other urogenital tract; E66.9 Obesity, unspecified; Z88.2 Allergy status to sulfonamides; Z79.01 Long term (current) use of anticoagulants; Z79.891 Long term (current) use of opiate analgesic; Z79.899 Other long term (current) drug therapy; Z98.890 Other specified postprocedural states; Z90.49 Acquired absence of other specified parts of digestive tract; Z98.51 Tubal ligation status
CPT/HCPCS: 00840; 36415; 71045; 71046; 74177; 80048; 80053; 80178; 81001; 83690; 83735; 84100; 84134; 84703; 85025; 87502; 93005; 93010; 94640; 94660; 94760; 96361; 96368; 96375; 96376; 99285-25; A9270; C1781; C9113; G0378; J0131; J0330; J0696; J1100; J1170; J1650; J1885; J2001; J2060; J2405; J2704; J2795; J7030; J7121; J7512; Q9967; U0003